=== PATIENT | male | born 1995 | race Caucasian/White ===

== ENCOUNTER 2019-11-08 06:16 | Inpatient (IN) | payer SELFPAY ==
[~2019-11-08] VITALS: Ht 167.6 cm; Wt 58.5 kg
[2019-11-08 06:22] VITALS: Ht 167.6 cm; Wt 58.5 kg
--- NOTE | 2019-11-08 06:30 | NUR ---
PT BIB [facility] WITH PT C/O LOWER BACK PAIN AFTER LIFTING HIS COUCH TO GET HIS METH PIPE THAT ROLLED UNDER THE COUCH. PT STATES PAIN IS CONSTANT, HOWEVER ABLE TO INTERMITTENTLY LAY STILL THEN APPEARS TO HAVE SPASMS. PT RATES PAIN 10/10. NO OBVIOUS INJURIES NOTED. PT A&OX4,STUTTERING HIS WORDS, UNABLE TO SIT STILL AND CONSTANTLY MOVING. PT STATED HIS BACK IS HAVING SPASMS. PT ALSO STATED TO METH USE "LAST NIGHT". MSE COMPLETED BY AT BEDSIDE.
--- NOTE | 2019-11-08 07:16 | NUR ---
PT BIB [facility] C/C LOW BACK PAIN S/P LIFTING A COUCH THIS AM SAW BY DR RAZO
[2019-11-08 07:32] LABS: C REACTIVE PROTEIN 0.4 mg/dL (<=0.9); CALCIUM 8.4 mg/dL (8.5-10.1); CARBON DIOXIDE 26.4 mmol/L (21-32); CHLORIDE SERUM 101 mmol/L (98-107); CREATININE SERUM 0.6 mg/dL (0.7-1.3); GFR1 > 60 mL/min; GLUCOSE SERUM 82 mg/dL (74-106); POTASSIUM SERUM 3.9 mmol/L (3.5-5.1); SODIUM SERUM 138 mmol/L (136-145)
[2019-11-08 07:41] LABS: BASOPHIL % 1.1 % (0-2)
[2019-11-08 08:29] LABS: PLATELET COUNT 84 x10^3mcL (130-400); RED CELL DISTRIBUTION WIDTH 17.2 % (11.5-14.5)
--- NOTE | 2019-11-08 08:52 | NUR ---
DR RAZO AT BEDSIDE TO RE EVAL
[2019-11-08 09:04] LABS: microscopic required? NO
--- NOTE | 2019-11-08 09:11 | NUR ---
Performed road test per LAUNDRY HELPER Beatrice delegation; PT tolerated poorly, he is unable to stand straight and balance self, he reports 8/10 pain in lower back; MD Crook notified.
[2019-11-08 09:32] LABS: UA SPECIFIC GRAVITY >=1.030 (1.005-1.035); urine erythrocyte NEGATIVE (NEGATIVE)
--- NOTE | 2019-11-08 10:10 | NUR ---
PT WATCHING TV NO DISCOMFORT NOTED
--- NOTE | 2019-11-08 12:18 | NUR ---
PLEASE ENTER FULL NAMES OF PRESS OPERATOR [employer]/RN Patient data collected by (PRESS OPERATOR [employer]):AMANUEL AUGUST Assessment reviewed and completed by (RN):BOB GARCIA
--- NOTE | 2019-11-08 12:23 | NUR ---
MEDICATED PT PER MD ORDERS. PT EDUCATED ON MEDICATION AND GAVE VERBAL UNDERSTANDING. PT REPORTS "I WILL HAVE A RESPONSIBLE DIRECTOR ALUMNI RELATIONS PICK ME UP. I KNOW I CANT DRIVE".
--- NOTE | 2019-11-08 13:20 | NUR ---
PT GIVEN LUNCH TRAY.
[2019-11-08 14:48] VITALS: BP 120/70
--- NOTE | 2019-11-08 14:57 | NUR ---
RECEIVED PT FROM ER, PT ADMIT FOR INTRACTABLE BACK PAIN, R/O SPINAL ABSCESS. PT IS A/O X4, VERBAL RESPONSIVE. LUNG SOUND CLEAR BILATERAL, NO COUGH, NO SOB. PT DENY ANY CHEST PAIN OR DISCOMFORT. BOWEL SOUND PRESENT ALL 4 QUADRANTS, NO DISTENTION, NO TNEDER. PEDAL PULSE PRESENT BOTH FEET, NO EDEMA, IV AT LEFT FA, NO LEAKING, NO INFILTRATOIN. 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 HE FELT HIS BACK SNAPPED. HE STATE HE CAN'T STRAIGHT HIS BACK OR AMBULATE DUE TO PAIN. PT ALSO MENTION HE GOT A SMALL LUMP AT [facility]. HE STATE HE WAS IN ER 1 MONTH AGO. WAS DISCHARGE HOME WITH ANTIBOTIC. BUT UNABLE PALPATE THE LUMP AT THIS MOMENT. ALL ADSL ASSIST, ALL NEED MET, CALL LIGHT IN REACH, WILL CONTINUE TO MONITOR.
--- NOTE | 2019-11-08 15:45 | NUR ---
IN TO SEE PT. PT REMAINS STABLE W/ NO ACUTE CHANGES TO STATUS. PT IS LYING IN BED. ALL QUESTIONS AND CONCERNS ADDRESSED. ALL NEEDS MET AT THIS TIME. WILL CONTINUE TO MONITOR PT.
[2019-11-08 17:04] VITALS: BP 97/44
--- NOTE | 2019-11-08 19:25 | NUR ---
REPORT GIVEN TO DANIEL CRAVEN. PT REMAINED STABLE THROUGHOUT MY SHIFT W/ NO ACUTE CHANGES TO STATUS. ALL QUESTIONS AND CONCERNS ADDRESSED. ALL NEEDS MET AT THIS TIME. ALL CARES ENDORSED.
--- NOTE | 2019-11-08 20:01 | NUR ---
Received pt awake/alert, GCS 15. NO DISTRESS NOTED IN RA, DENIES ANY PAIN/DISCOMFORT AT THIS TIME. PT ABLE TO GET OUT BED INDEPENDENTLY WITH STEADY GAIT. NO OPEN AREA NOTED. CALL LIGHT IS WITHIN REACH, ENCOURAGED TO USE FOR ASSISTANCE, PT VERBALIZED UNDERSTANDING. WILL CONTINUE TO MONITOR.
[2019-11-08 20:37] VITALS: BP 110/64
[2019-11-09 05:31] VITALS: BP 105/54
--- NOTE | 2019-11-09 06:41 | NUR ---
PT IS SLEEPING BUT IS EASILY AROUSABBLE, GCS 15. NO DISTRESS NOTED IN RA. ALL VS WDL. PT ABLE TO GET OUT OF BED INDEPENDENTLY. NO OPEN AREA, SKIN INTACT. IV IS PATENT RUNNING NS @70ML/HR. NO C/O PAIN THROUGH OUT THE SHIFT. NO EPISODE OF N/V/D, ACTIVE BOWEL SOUNDS IN ALL QUADRANTS. FALL PROTOCOL IN PLACE AND CALL LIGHT WITHIN REACH. NOM ACUTE EVENTS OVERNIGHT, ALL NEEDS WERE MET.
[2019-11-09 07:22] LABS: CALCIUM 8.3 mg/dL (8.5-10.1); CARBON DIOXIDE 27.2 mmol/L (21-32); CHLORIDE SERUM 103 mmol/L (98-107); CREATININE SERUM 0.8 mg/dL (0.7-1.3); GFR1 > 60 mL/min; GLUCOSE SERUM 86 mg/dL (74-106); POTASSIUM SERUM 3.7 mmol/L (3.5-5.1); SODIUM SERUM 137 mmol/L (136-145)
--- NOTE | 2019-11-09 07:30 | NUR ---
RECEIVED PATIENT IN BED, APPEARS TO BE RESTING, AROUSED EASILY TO NAME. ALERT AND ORIENTED. VERBALIZES THAT HE WOULD LIKE TO GO HOME HIS BACK FEELS BETTER. IVF INFUSING WELL, SITE PATENT. AMBULATES AD NITA TO THE BATHROOM WITH GOOD STEADY GAIT. PATIENT VERBALIZED THE POSSIBILITY OF AMA IF HE DOES NOT GET DISCHARGED HOME TODAY.
[2019-11-09 07:55] LABS: BASOPHIL % 0.4 % (0-2); PLATELET COUNT 307 x10^3mcL (130-400)
[2019-11-09 08:27] VITALS: BP 109/55
--- NOTE | 2019-11-09 09:00 | NUR ---
PATIENT'S PLAN OF CARE WAS DISCUSSED AND REVIEWED WITH PAPER MACHINE TENDER:EMERALD RUTLEDGE. I HAVE REVIEWED THE DATA COLLECTION BY PAPER MACHINE TENDER (NAME):EMERALD RUTLEDGE. ENTERED ON (DATE/TIME):11/09/19. I CONCUR WITH THE DATA AND ANY EXCEPTIONS OR COMMENTS ARE LISTED BELOW:
[2019-11-09 09:56] VITALS: BP 109/55
--- NOTE | 2019-11-09 10:23 | NUR ---
PATIENT IS ON THE BED, AND TO DISCHARGE HOME TODAY AFTER SEEN BY PHYISAL THERAPY. PATIENT IS AWARE OF THIS.
--- NOTE | 2019-11-09 10:52 | NUR ---
PATIENT READY FOR D/C HOME. HL DC'D, AND DISCHARGE INSTRUCTIONS GIVEN. PERSONAL BELONGINGS LIST SIGNED. EDUCATION PROVIDEDL. PER PATIENT HIS RIDE WILL BE HERE IN APPROX 13 MINS TO TAKE HIM HOME. CONDITION APPEARS STABLE.
== END 2019-11-09 11:00 | disposition home or self-care (01) | DRG 552 ==
LOC: ED 06:16 → MU 12:56
PROVIDERS: Emergency Medicine; ADMIT Family Medicine; ATTEND Family Medicine
DX: M62.830 Muscle spasm of back (principal); M54.9 Dorsalgia, unspecified; F15.90 Other stimulant use, unspecified, uncomplicated; D64.9 Anemia, unspecified; D69.6 Thrombocytopenia, unspecified; D89.9 Disorder involving the immune mechanism, unspecified; R26.89 Other abnormalities of gait and mobility; Z20.828 Contact with and (suspected) exposure to other viral communicable diseases
CPT/HCPCS: 82962; G0378; J2270; J2405; J7030; Q9967